=== PATIENT | female | born 2000 | race Caucasian/White ===

== ENCOUNTER 2022-04-26 12:33 | Emergency (ER) | payer OTHER, SELFPAY ==
[2022-04-26 12:49] VITALS: BP 107/87; PULSE 80; RESP 18; TEMP 36.6; O2SAT 100; BMI 50.3
--- NOTE | 2022-04-26 13:02 | CRLHL7_ITS ---
For Patients: As a result of the Century Cures Act, medical imaging exams and procedure reports are released immediately into your electronic medical record. You may view this report before your referring provider. If you have questions, please contact your health care provider. INDICATION: Headache TECHNIQUE: CT head without contrast. COMPARISON: None FINDINGS: CSF spaces: Within normal limits for age. Brain parenchyma: The winters-white differentiation is normal. No sign of mass, hemorrhage, or midline shift. Skull base and calvarium: Mucosal thickening maxillary sinuses left greater than right. Mucosal thickening the ethmoid and frontal air cells. The visualized orbits are grossly unremarkable. No skull fractures. IMPRESSION: No acute intracranial abnormalities. 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 Dictated by Octaviano Aly MD @ 04/26/2022 1:29:55 PM Please note that all CT scans at this facility use dose modulation, iterative reconstruction, and/or weight-based dosing when appropriate to reduce radiation dose to as low as reasonably achievable. Dictated by: Octaviano Aly MD @ 04/26/2022 13:30:01 (Electronically Signed)
--- NOTE | 2022-04-26 13:12 | ED_ITS ---
HPI - Headache General Chief Complaint: Headache/Migraine Stated Complaint: Migraine, trouble speaking Time Seen by Provider: 04/26/22 12:41 History of Present Illness HPI Narrative: Pt is a 22 year old woman who has a history of hemiplegic migraines who presents with a 2 hour history of severe headache. Pt has a difficult time processing information due to the intensity of the headache. The headache is severe and diffuse. No signs of paralysis. Pt has had no nausea or vomiting. Pt isnt sure that she is seeing correctly but has no focal visual defects. Pt was in good health when the headache began abruptly 2 hours ago. Pt typically has her migraine headaches every 2 months but feels like they are escalating. Pt generally doesn not take medication for her headaches as they resolve on their own in 1-2 hours and did not take any medications today. Pt brought in from [facility] by campus safety. Related Data Home Medications Medication Instructions Recorded Confirmed No Known Home Medications 04/26/22 04/26/22 Allergies Allergy/AdvReac Type Severity Reaction Status Date / Time No Known Drug Allergies Allergy Verified 04/26/22 12:55 Review of Systems Status of ROS: Reports: 10 or more systems reviewed and unremarkable except as noted in History and below [facility] Medical History (Updated 04/26/22 @ 14:16 by Delbert Franks MD) Hemiplegic migraine Social History Smoking Status: Never smoker How often do you have a drink containing alcohol: never AUDIT-C Alcohol total score: 0 Non-prescribed substance use: denies use Exam Narrative: Exam Narrative: EXAM GENERAL: Patient appears comfortable and well. EYES: No scleral icterus. ENT: Tympanic membranes and oropharynx normal. THYROID: no thyroid nodules or thyromegaly. LYMPH: No supraclavicular or cervical lymphadenopathy. SKIN: Visible skin seen during exam normal or with benign process only. EXT: No dependent lower extremity pedal edema. HEART: Regular rate and rhythm with no murmurs, rubs, or gallops. LUNGS: Clear to auscultation bilaterally with no crackles or wheezes. ABD: Soft, non tender, non distended. PSYCH: Good eye contact, speech is not pressured. Neuro exam cranial nerves 2-12 grossly intact no focal neurologic defects. Const: Vital Signs, click to edit/add: Vital Signs - 24 hr 04/26/22 12:49 04/26/22 13:49 Temperature 98 F 97.6 F Pulse Rate [Pulse Oximeter] 80 75 Respiratory Rate 18 16 Blood Pressure [Le ft Upper Arm] 107/87 109/79 Pulse Oximetry 100 100 Oxygen Delivery Me thod Room Air Room Air Course Course Hospital Course: CT of the head without contrast ordered as is 1 liter of normal saline, 25 mg of IV benadryl, 4 mg of zofran and 30 mg of Toradol IV. Reevaluation(s) Reevaluation #1: Head CT negative upon my review. Time: 14:06 Time: 14:13 Reevaluation #3: Pt now feeling fine. Vital Signs Vital signs: Initial Vital Signs Temperature 98 F 04/26/22 12:49 Temperature Source Temporal Artery Scan 04/26/22 12:49 Pulse Rate 80 04/26/22 12:49 Respiratory Rate 18 04/26/22 12:49 Blood Pressure 107/87 04/26/22 12:49 Blood Pressure Mean 93 04/26/22 12:49 Blood Pressure Position Supine 04/26/22 12:49 Pulse Oximetry 100 04/26/22 12:49 Oxygen Delivery Method 04/26/22 12:49 Vital Signs Temperature 98 F 04/26/22 12:49 Pulse Rate 80 04/26/22 12:49 Respiratory Rate 18 04/26/22 12:49 Blood Pressure 107/87 04/26/22 12:49 Pulse Oximetry 100 04/26/22 12:49 Oxygen Delivery Method 04/26/22 12:49 Temperature 97.6 F 04/26/22 13:49 Pulse Rate 75 04/26/22 13:49 Respiratory Rate 16 04/26/22 13:49 Blood Pressure 109/79 04/26/22 13:49 Pulse Oximetry 100 04/26/22 13:49 Oxygen Delivery Method 04/26/22 13:49 MDM - Headache MDM Narrative Medical decision making narrative: Pt is a 22 year old woman who presents with a severe migraine. Pt had a CT scan which was normal upon my review. Pt has a normal exam and vitals. Pt treated with normal saline, toradol, zofran and benadryl with resolution of her symptoms. Pt would like to go home. Agrees to follow up with PCP. Differential Diagnosis Differential diagnosis: Likely migraine, tension headache, subarachnoid hemorrhage, headache, meningitis and sinusitis Discharge Plan Discharge Clinical Impression: Migraine Condition: Stable Instructions: Migraine Headache (ED) Additional Instructions: Follow up with PCP Activity Level: No Restrictions Discharge Diet: Regular Prescriptions: No Action No Known Home Medications Follow Up/Referrals: Provider,Not a Local [Primary Care Provider] - Stand Alone Forms: [employer] Info Instructions
[2022-04-26] MEDS: 0.9 % SODIUM CHLORIDE 1000 ml 1,000 ML IV (13:40)
[2022-04-26] MEDS: ONDANSETRON 2 MG/ML inj 4 MG IVP (13:41)
[2022-04-26] MEDS: KETOROLAC 30 MG/ML inj IVP (13:41)
[2022-04-26] MEDS: diphenhydrAMINE 50 MG/ML inj 25 MG IVP (13:41)
[2022-04-26 13:49] VITALS: BP 109/79; PULSE 75; RESP 16; TEMP 36.4; O2SAT 100
== END 2022-04-26 14:44 | disposition home or self-care (01) ==
PROVIDERS: Emergency Provider Internal Medicine
DX: G43.909 Migraine, unspecified, not intractable, without status migrainosus (principal)
CPT/HCPCS: 70450; 96374; 96375; 99283; 99284; J1200; J1885; J2405; J7030

== ENCOUNTER 2023-01-12 20:48 | Emergency (ER) | payer OTHER, SELFPAY ==
[2023-01-12 21:01] VITALS: BP 120/76; PULSE 71; RESP 18; TEMP 36.6; O2SAT 96; BMI 22.8
--- NOTE | 2023-01-12 21:41 | ED_ITS ---
HPI - Wound/Laceration General Time Seen by Provider: 21:41 Date Seen: 01/12/23 Chief Complaint: Laceration/Wound Stated Complaint: L thumb lac carving pumpk Time Seen by Provider: 01/12/23 21:45 Source: patient, RN notes reviewed and old records reviewed Mode of arrival: ambulatory Limitations: no limitations History of Present Illness HPI narrative: Teagan is a very pleasant 22-year-old female from [place] currently going to school in [place] who is brought to the emergency room for evaluation regarding a laceration. Patient had been using a clean knife earlier this evening to carb a pumpkin and it slipped. She is right-hand dominant. The laceration occurred over the MCP joint of the left thumb. Dorsal surface. Since that time she has been using gauze to stop the bleeding. She is able to move her thumb without difficulty. She has sensation in her thumb. She does not feel like there is any compromise of her strength. She is fairly certain th at her tetanus is up-to-date. She denies any other medical problems. Related Data Home Medications Medication Instructions Recorded Confirmed isotretinoin 30 mg capsule 30 mg PO BID 01/12/23 01/12/23 Allergies Allergy/AdvReac Type Severity Reaction Status Date / Time No Known Drug Allergies Allergy Verified 04/26/22 12:55 Review of Systems Status of ROS: Reports: 6 or more systems reviewed and unremarkable except as noted in History and below Const: Denies: fever Musculo: Reports: extremity pain; Denies: extremity swelling Integ/Breast: Reports: skin tenderness; Denies: rash PFSH [facility] Medical History Hemiplegic migraine ?G43.409 - Hemiplegic migraine, not intractable, without status migrainosus (ICD-10) Social History Smoking Status: Never smoker How often do you have a drink containing alcohol: never AUDIT-C Alcohol total score: 0 Non-prescribed substance use: denies use Exam Narrative: Exam Narrative: Teagan is alert and oriented. She is not in any acute distress but looks like she may have been crying. Examination of her left hand shows a C shaped laceration directly over the MCP of the thumb. This compromises epidermis dermis and this helps kidneys tissue. I am able to see underlying structures but there appears to be no compromise. She has full extension of the distal aspect of the thumb with a equal strength compared to the right. I do not note compromise in extensor tendon. Able to isolate extension at the IP joint as well. No foreign bodies are noted. Const: Vital Signs, click to edit/add: Vital Signs - 24 hr 01/12/23 21:01 Temperature 97.8 F Pulse Rate [Pulse Oximeter] 71 Respiratory Rate 18 Blood Pressure [Ri ght Upper Arm] 120/76 Pulse Oximetry 96 Oxygen Delivery Me thod Room Air Documenting provider has reviewed patient's vital signs: yes Course Course ED Course: Will place let for anesthesia. Unfortunately I do not feel that gluing of the wound would hold given its location. Would recommend suturing and patient is accepting of that. Reevaluation(s) Reevaluation #1: Suture note: Let was applied for 30 minutes with good blanching of the area around the wound. Wound was explored and there were no foreign bodies noted. Wound was irrigated by myself. Again, extension both of the some and isolated distal phalanx with full strength and motor. Also distally sensation and motor entirely intact. Total wound length was approximately 2 cm but this was a C like laceration. Four sutures of 5-0 Ethilon placed in interrupted fashion. I did apply a very small amount of glue to the wound edges. Vital Signs Vital signs: Initial Vital Signs Temperature 97.8 F 01/12/23 21:01 Temperature Source Temporal Artery Scan 01/12/23 21:01 Pulse Rate 71 01/12/23 21:01 Respiratory Rate 18 01/12/23 21:01 Blood Pressure 120/76 01/12/23 21:01 Blood Pressure Mean 90 01/12/23 21:01 Blood Pressure Position Sitting 01/12/23 21:01 Pulse Oximetry 96 01/12/23 21:01 Oxygen Delivery Method Room Air 01/12/23 21:01 Vital Signs Temperature 97.8 F 01/12/23 21:01 Pulse Rate 71 01/12/23 21:01 Respiratory Rate 18 01/12/23 21:01 Blood Pressure 120/76 01/12/23 21:01 Pulse Oximetry 96 01/12/23 21:01 Oxygen Delivery Method Room Air 01/12/23 21:01 Temperature 97.8 F 01/12/23 21:01 Pulse Rate 71 01/12/23 21:01 Respiratory Rate 18 01/12/23 21:01 Blood Pressure 120/76 01/12/23 21:01 Pulse Oximetry 96 01/12/23 21:01 Oxygen Delivery Method Room Air 01/12/23 21:01 MDM - Wound/Laceration MDM Narrative Medical decision making narrative: 1. Hand laceration-suture should be removed in 10 days time. Monitor for signs and symptoms of infection. Instructions for no soaking of the wound. Patient should return for worsening symptoms indicating infection and these were discussed with her. Patient notes that her in vaccinations are up-to-date. 2. Disposition home-back to [facility]. Return as needed. Discharge Plan Discharge Clinical Impression: Laceration Patient Disposition: Home, Self-Care Condition: Improved Additional Instructions: Keep covered with a bandage tonight. You may remove it tomorrow. If you are in class or if there is possibility of wound contamination please cover with a Band-Aid. Otherwise you can leave open to air. You can wash your hands with soap and water and pat dry. However, recommend against soaking her hand such as when your doing dishes taking a bath or swimming. Suture removal in 10 days time. For the 1st 48 hours limit movement of your thumb. Return to the emergency room for increasing redness, drainage, fever or chills or other signs of infection. Prescriptions: No Action isotretinoin 30 mg capsule 30 mg PO BID Follow Up/Referrals: Provider,Not a Local [Primary Care Provider] - Stand Alone Forms: [employer] Info Instructions
[2023-01-12] MEDS: LIDOCAINE/EPINEP/TETRACAINE 3 ML GEL..ML. TOPICAL (22:00)
--- OUTSIDE RECORDS SUMMARY | 2023-01-12 22:15 | XMS_ITS | Patient Health Record ---
Author Name Unknown Organization Administrative Offic e Address [address] [place] [address] Support Name Relationship Address Phone AlyssiaMihaela Emergency Contact [address] [place], [place] [phone] Kenney Chairez Guarantor Unknown Unavailabl e REASON FOR REFERRAL No Information IMMUNIZATIONS Vaccine Route Administration Date Status Comme nts Bexsero (Men B) Unknown 08/01/2020 Pending Bexsero (Men B) IM Intramuscular 08/19/2020 Administered Bexsero (Men B) IM Intramuscular 10/27/2020 Administered Menveo Unknown 08/01/2020 Pending SOCIAL HISTORY Sex Assigned At : Social History Observation Description Sex Assigned At Unknown PLAN OF TREATMENT No Information Insurance Providers Payer Name Payer Address Payer Phone Subscriber Number Group Number Insured Name Patient Relationship to Insured Coverage Start Date Coverage End Date [employer] [address] [place] [address] [id number] KAIA CHAIREZ Self - patient is the insured
== END 2023-01-12 23:01 | disposition home or self-care (01) ==
PROVIDERS: Emergency Provider Family Medicine
DX: S61.012A Laceration without foreign body of left thumb without damage to nail, initial encounter (principal); W26.0XXA Contact with knife, initial encounter
CPT/HCPCS: 12001; 99283; 99284

== ENCOUNTER 2023-07-08 19:17 | Emergency (ER) | payer OTHER, SELFPAY ==
[2023-07-08 19:31] VITALS: BP 115/65; PULSE 90; RESP 16; TEMP 36.4; O2SAT 99; BMI 22.4
--- NOTE | 2023-07-08 20:03 | ED_ITS ---
HPI - Head Injury General Chief complaint: Head Injury/Pain Stated complaint: Hit in temporal area with soccer ball-vomited Time Seen by Provider: 07/08/23 19:22 History of Present Illness HPI Narrative: This 23-year-old female comes in for evaluation of a head injury that occurred prior to arrival. She was playing soccer non competitively and was hit in the head by the soccer ball. She did not have loss of consciousness. She did fall over because of this injury but did not injure anything else. Soon after this she had 1 emesis that was not projectile or forceful. She comes in now stating that she feels better but has a mild headache. She does report history of migraine headaches but states that she is not having those type of symptoms. She does not have any neurologic deficit or altered level consciousness. She wanted to go to urgent care but was not opened was instructed to come here for evaluation. Related Data Previous Rx's Medication Instructions Recorded ketorolac 10 mg tablet 10 mg PO Q8H 5 days #15 tabs 07/08/23 ondansetron HCl 4 mg tablet 4 mg PO Q6H #15 tabs 07/08/23 Allergies Allergy/AdvReac Type Severity Reaction Status Date / Time No Known Drug Allergies Allergy Verified 04/26/22 12:55 Review of Systems Status of ROS: Reports: 10 or more systems reviewed and unremarkable except as noted in History and below Narrative: Constitutional: No fevers, no weight gain or loss. Eyes: No discharge. No vision changes. HENT: No congestion, no sore throat, no ear pain. Cardiovascular: No chest pain, no palpitations. Respiratory: No shortness of breath, no wheezes, no cough. Gastrointestinal: No abdominal pain, no vomiting, no diarrhea. Genitourinary: No dysuria, no hematuria. Musculoskeletal: Normal range of motion. Skin: No rashes, no pruritis. Neurological: No dizziness, weakness, sensory change, speech change. Endo/Heme/Allergies: No bruising or bleeding. No polydipsia. Pysch: no suicidality, no anxiety, no insomnia. All other systems reviewed and are negative. [facility] Medical History Hemiplegic migraine ?G43.409 - Hemiplegic migraine, not intractable, without status migrainosus (ICD-10) Social History Smoking Status: Never smoker How often do you have a drink containing alcohol: never AUDIT-C Alcohol total score: 0 Non-prescribed substance use: denies use Exam Narrative: Exam Narrative: Constitutional: Well-developed, well-nourished, no acute distress. HEENT: Normocephalic, atraumatic. No sign of injury. Neck: Normal range of motion. Nontender. Supple. Heart: Regular. No murmurs. Normal rate. Intact distal pulses. Lungs: Clear to auscultation. No chest discomfort. No wheezes, rhonchi, or rales. Abdomen: Normal bowel sounds. Nontender. No rebound tenderness. Genitalia: Deferred. Back: No midline tenderness. Normal range of motion. Extremities: Normal range of motion. No injury. Skin: Intact. No rash. Warm. No erythema or pallor. Neurologic: No altered sensation. No weakness. Alert and oriented. No facial asymmetry. Tongue is midline. Psychiatric: No suicidality. No anxiety or depression. No insomnia. Nursing notes and vitals signs are reviewed. Const: Vital Signs, click to edit/add: Vital Signs - 24 hr 07/08/23 19:31 Temperature 97.6 F Pulse Rate [Pulse Oximeter] 90 Respiratory Rate 16 Blood Pressure [Ri ght Upper Arm] 115/65 Pulse Oximetry 99 Oxygen Delivery Me thod Room Air Course Vital Signs Vital signs: Initial Vital Signs Temperature 97.6 F 07/08/23 19:31 Temperature Source Temporal Artery Scan 07/08/23 19:31 Pulse Rate 90 07/08/23 19:31 Respiratory Rate 16 07/08/23 19:31 Blood Pressure 115/65 07/08/23 19:31 Blood Pressure Mean 81 07/08/23 19:31 Blood Pressure Position Sitting 07/08/23 19:31 Pulse Oximetry 99 07/08/23 19:31 Oxygen Delivery Method Room Air 07/08/23 19:31 Vital Signs Temperature 97.6 F 07/08/23 19:31 Pulse Rate 90 07/08/23 19:31 Respiratory Rate 16 07/08/23 19:31 Blood Pressure 115/65 07/08/23 19:31 Pulse Oximetry 99 07/08/23 19:31 Oxygen Delivery Method Room Air 07/08/23 19:31 Temperature 97.6 F 07/08/23 19:31 Pulse Rate 90 07/08/23 19:31 Respiratory Rate 16 07/08/23 19:31 Blood Pressure 115/65 07/08/23 19:31 Pulse Oximetry 99 07/08/23 19:31 Oxygen Delivery Method Room Air 07/08/23 19:31 MDM - Head Injury MDM Narrative Medical decision making narrative: This patient is a 23-year-old female who was hit in the head by a soccer ball and had a subsequent emesis. She states that she might have had a concussion in the past. I did review nexus rules for deciding whether to do a CT scan. She is not tripping any of those triggers and CT scan is not indicated. The patient is really having minimal symptoms at this time and states that it was the vomiting that triggered other people around her do recommend that she get checked out. Her vomiting was only 1 episode and it was not forceful or projectile. She does have history of occasional migraine headaches but does not report such at this time. I did provide prescription for Toradol and Zofran to be used as needed now and in the future with regard to her recurrent migraines that happen occasionally. Discharge Plan Discharge Clinical Impression: Closed head injury Patient Disposition: Home, Self-Care Condition: Stable Prescriptions: New ondansetron HCl 4 mg tablet 4 mg PO Q6H Qty: 15 0RF ketorolac 10 mg tablet 10 mg PO Q8H 5 Days Qty: 15 0RF Follow Up/Referrals: Provider,Not a Local [Primary Care Provider] - Stand Alone Forms: [employer] Info Instructions
[2023-07-08 20:47] VITALS: BP 120/66; PULSE 85; RESP 18; TEMP 36.7; O2SAT 98
== END 2023-07-08 20:51 | disposition home or self-care (01) ==
LOC: ED 20:27
PROVIDERS: Emergency Provider Emergency Medicine Emergency Medical Services
DX: S09.90XA Unspecified injury of head, initial encounter (principal); W21.02XA Struck by soccer ball, initial encounter
CPT/HCPCS: 99283; 99284

== ENCOUNTER 2024-05-19 04:52 | Emergency (ER) | payer OTHER, SELFPAY ==
--- OUTSIDE RECORDS SUMMARY | 2024-05-19 04:54 | XMS_ITS | Clinical Summary ---
Author Organization [facility] Address [address] [place] [address] Care Team Providers Care Tax Appraiser Name Role Phone Mary Sanders MD Primary Care Provider [phone] Allergies No known active allergies Medications traZODone (DESYREL) 100 MG tablet 02/06/2024 Active desvenlafaxine (PRISTIQ) 50 MG 24 hr tablet 02/10/2024 Active aspirin-acetamin ophen-caffeine (EXCEDRIN MIGRAINE) 250-250-65 mg per tablet Take 1 tablet by mouth every 6 (six) hours as needed for headaches. 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 Overview (09/27/2020): Added automatically from request for surgery [id number] Encounters Date Type Department Care Team Description 03/18/2024 3:40 PM TIRE MOLD ENGRAVER Office Visit [facility] [address] [place] [id number] Maggy Zavaleta PA Encounter for well woman exam with routine gynecological exam (Primary Dx); PMDD (premenstrual dysphoric disorder) from Last 3 Months Family History Medical History Relation Name Comments No Known Problems Brother 1 No Known Problems Brother 2 Anxiety disorder Father Arrhythmia Father Heart disease Father Panic disorder Father Atrial fibrillation Maternal Grandfather Heart disease Maternal Grandmother Thyroid cancer Maternal Grandmother Skin cancer Mother Thyroid disease Mother Breast cancer Paternal Grandmother Theresa Patton ccurred after age of 50 Multiple myeloma Paternal Grandmother Theresa pat Relation Name Status Comments Brother 1 Alive Brother 2 Alive Father Alive Maternal Grandfather Alive Maternal Grandmother Alive Mother Alive Paternal Grandfather Alive Paternal Grandmother Theresa Lewis Social History Tobacco Use Types Packs/Day Years Used Date Smoking Tobacco: Never Smokeless Tobacco: Never Tobacco Cessation:Counseling Given: Not Answered Alcohol Use Standard Drinks/Week Comments Yes 2 (1 standard drink = 0.6 oz pur e alcohol) social Comments No Sex and Gender Information Value Date Recorded Sex Assigned at Female 08/18/2020 7:53 AM CDT Legal Sex Female 7:46 PM TIRE MOLD ENGRAVER Gender Identity Female 08/18/2020 7:53 AM CDT Sexual Orientation Don't know 08/18/2020 7: 53 AM CDT Occupation Industry Job Start Date Job End Date Student Not on file Not on file Not on file Last Filed Vital Signs Vital Sign Reading Time Taken Comments Blood Pressure 112/74 03/18/2024 3:41 PM TIRE MOLD ENGRAVER Pulse 101 03/18/2024 3:41 PM TIRE MOLD ENGRAVER Temperature 36.1 C (97 F) 12/06/2020 10:03 AM CDT Respiratory Rate 18 10/24/2020 11:00 AM CDT Oxygen Saturation 99% 10/24/2020 11:00 AM CDT Inhaled Oxygen Concentration - - Weight 63 kg (138 lb 12.8 oz) 03/18/2024 3:41 PM TIRE MOLD ENGRAVER Height 172.7 cm (5' 8) 10/27/2021 10:11 AM CDT Body Mass Index 21.1 10/27/2021 10:11 AM CDT Plan of Treatment Health Maintenance Due Date Last Done Comments HEPATITIS C SCREENING 02/16/2020 COVID-19 VACCINE (3 - 2023-2 5 season) 2023 07/21/2020, 06/28/2020 INFLUENZA VACCINE (#1) 2023 CHLAMYDIA SCREENING 03/18/2025 03/18/2024 CERVICAL CANCER SCREENING 03/18/2027 03/18/2024 Pneumococcal Vaccine: Pediatrics (0 to 5 Years) and At-Risk Patients (6 to 64 Years) Aged Out No longer eligible b ased on patient's age to complete this topic Procedures Procedure Name Priority Date/Time Associated Diagnosis Comments PAP W/AGE BASED SCREENING PROTOCOLS Routine 03/18/2024 4:35 PM TIRE MOLD ENGRAVER Encounter for well woman exam with routine gynecological exam from Last 3 Months Results * PAP W/AGE BASED SCREENING PROTOCOLS (03/18/2024 4:35 PM TIRE MOLD ENGRAVER) Comment [facility] [facility] Comment: This order for age-based cervical cancer and STI screening follows ACOG guidelines(PB 168, 140, CNV392). See individual assays for performing site location. Clinical information [facility] [facility] Comment:None given Date of last menstrual period [facility] [facility] Comment:NONE GIVEN Prev. pap: [facility] [facility] Comment:NONE GIVEN Prev. bx: [facility] [facility] Comment:NONE GIVEN Source [facility] [facility] Comment:Cervix, Endocervix Statement of adequacy [facility] [facility] Comment: Satisfactory for evaluation. Endocervical/transformation zone component absent. Age and/or menstrual status not provided Interpretation/resu lt: [facility] [facility] Comment: Cytology Results: Negative for intraepithelial lesion or malignancy. Comment [facility] [facility] Comment: This Pap test has been evaluated with computer assisted technology. Forming Department End Finder [facility] [facility] Comment: DGP, CT(ASCP) CT screening location: [address],[phone] CLIA: [id number] Slide Preparation performed at: [facility] [address] [place] [phone] CLIA: [id number] Comment [facility] [facility] Comment: EXPLANATORY NOTE: The Pap is a screening test for cervical cancer. It is not a diagnostic test and is subject to false negative and false positive results. It is most reliable when a satisfactory sample, regularly obtained, is submitted with relevant clinical findings and history, and when the Pap result is evaluated along with historic and current clinical information. Chlamydia trachomatis, [place] NOT DETECTED NOT DETECTED [facility] [facility] Neisseria gonorrhoeae, [place] NOT DETECTED NOT DETECTED [facility] [facility] (Always message) [facility] [facility] Comment: The analytical performance characteristics of this assay, when used to test SurePath(TM) specimens have been determined by [facility]. The modifications have not been cleared or approved by the FDA. This assay has been validated pursuant to the CLIA regulations and is used for clinical purposes. For additional information, please refer to https://education.[employer]faq/EQJ761 (This link is being provided for information/ educational purposes only.) Swab 03/18/2024 4:35 PM TIRE MOLD ENGRAVER 03/19/2024 9:13 AM TIRE MOLD ENGRAVER Narrative Resulting Agency Comment Performing Organization Information: Site ID: [id number] Name: [facility] Address: [address] [place] [phone] Director: Christine Goodwin MD, PhD us Maggy [facility]CYTOLOGY ORDER OLINDA Final Result [facility] [address] [place] [address]. [place] [address] from Last 3 Months Insurance [employer] PPO OPEN CHOICE Care Teams Tax Appraiser Relationship Specialty Start Date End Date Mary Sanders MD [address] [place] [address] PCP - General Pediatrics 08/19/20
--- OUTSIDE RECORDS SUMMARY | 2024-05-19 04:54 | XMS_ITS | Encounter Summary ---
Author Organization [facility] Address [address] [place] [address] Care Team Providers Care Official Court Reporter Name Role Phone Mary Sanders MD Primary Care Provider [phone] Encounter Details Date Type Department Care Team (Late st Contact Info) Description 09/29/2020 Telephone [facility] [address] [phone] Desmond Worthy MD [address] [facility] [address] [place], [place] [id number] Social History Tobacco Use Types Packs/Day Years Used Date Smoking Tobacco: Never Assessed Alcohol Use Standard Drinks/Week Comments Never 0 (1 standard drink = 0.6 oz pur e alcohol) Comments No Sex and Gender Information Value Date Recorded Sex Assigned at Female 08/18/2020 7:53 AM CDT Legal Sex Female 7:46 PM BACK JOINER Gender Identity Female 08/18/2020 7:53 AM CDT Sexual Orientation Don't know 08/18/2020 7: 53 AM CDT COVID-19 Exposure Response Date Recorded In the last month, have you been in contact with someone who was confirmed or suspected to have Coronavirus / COVID-19? No / Unsure 09/09/2020 11:10 AM CDT documented as of this encounter Plan of Treatment Not on file documented as of this encounter Visit Diagnoses Not on filedocumented in this encounter Care Teams Official Court Reporter Relationship Specialty Start Date End Date Mary Sanders MD [address] [place] [id number] PCP - General Pediatrics 08/19/20 documented as of this encounter
[2024-05-19 04:57] VITALS: BP 137/81; PULSE 79; RESP 20; TEMP 37.1; O2SAT 97; BMI 21.3
[2024-05-19 05:13] LABS: Appearance Urine Clear (Clear); Bilirubin Urine Negative (Negative); Blood Urine Negative (Negative); Color Urine Yellow (Yellow); Glucose Urine Negative (Negative); Ketones Urine Negative (Negative); Leukocyte Esterase Urine Negative (Negative); Nitrite Urine Negative (Negative); Protein Urine Negative (Negative); Urobilinogen Urine 0.2 (0.2-1.0)
[2024-05-19 05:18] LABS: RBC Urine 0-2 (0-2); Squamous Epithelial Cell Urine Few (None-Few); WBC Urine 0-2 (0-5)
[2024-05-19 05:19] LABS: Bacteria Urine Few; Ur HCG Qualitative* Negative (Negative)
--- NOTE | 2024-05-19 05:24 | CRLHL7_ITS ---
For Patients: As a result of the Century Cures Act, medical imaging exams and procedure reports are released immediately into your electronic medical record. You may view this report before your referring provider. If you have questions, please contact your health care provider. INDICATION: Right lower quadrant pain. Negative test. COMPARISON: None. TECHNIQUE: CT of the abdomen and pelvis with intravenous contrast. Multiplanar axial, coronal, and sagittal reformats were reconstructed. Contrast: 69 mL Isovue 370. FINDINGS: Lung bases: Normal. Liver: Normal. No mass. Gallbladder and bile ducts: Normal gallbladder. No bile duct dilation. Pancreas: Normal. Spleen: Normal. Adrenal glands: Normal. Kidneys: Normal parenchyma. There is a 2 centimeters cyst in the left posterior mid kidney. No calculi. No urinary tract dilation. Urinary bladder: Normal. Pelvis: There are 2 right ovarian cystic lesions. The largest measures 3.4 x 3.0 x 3.0. The smaller measures up to 2 centimeters in greatest maximum dimension. Mildly heterogeneous uterus with several myometrial lesions/masses. The largest is in the right fundus and measures 1.7 cm. There is a moderate amount of hemoperitoneum. Vessels: Normal. Bowel: No dilated or inflamed bowel. The appendix is not definitely seen. There is fecalization of the small bowel contents diffusely. Large stool burden. Lymph nodes: No adenopathy. Peritoneum: Hemoperitoneum in the pelvis and extending up the left inferior pericolic gutter. No free air. No loculation. Abdominal wall: No hernia. Bones: No fractures. No focal worrisome bone lesions. IMPRESSION: 1. Large hemoperitoneum. Suspect ovarian origin/ruptured cyst. Discussed with Dr. Leonard at 6:10 a.m. on 05/19/2024. 2. There also some small uterine myometrial lesions that are probably fibroids. 3. Constipation with a large stool burden and significant fecalization of the small bowel contents. Please note that all CT scans at this facility use dose modulation, iterative reconstruction, and/or weight-based dosing when appropriate to reduce radiation dose to as low as reasonably achievable. Dictated by Ijeoma Flowers MD @ 05/19/2024 6:11:40 AM (Electronically Signed)
--- NOTE | 2024-05-19 05:27 | ED.GENADULT ---
HPI - General Adult General Chief complaint: Abdominal Pain Stated complaint: Abdominal Pain Time Seen by Provider: 05/19/24 05:10 Source: patient Mode of arrival: ambulatory Limitations: no limitations History of Present Illness HPI narrative: 24-year-old female with no prior history of abdominal surgeries presents to the emergency department for evaluation of pain in the right lower quadrant for the past 10 hours, worsening in nature. Did not try taking any medication today to help with symptoms. Did take 2 Excedrin 20 hours ago because she thought a migraine might be coming on. No fever, no injury or trauma. No dysuria or gynecological changes. Denies any prior history of intercourse. Menses are irregular, last cycle was in March. No hematuria. Last bowel movement was last night, benign. No bloody stools or diarrhea. No nausea or vomiting. Tearful in triage she. Pain is constant and radiates to the right shoulder. Worsening in nature, has not tried anything to help with her symptoms today. Denies prior history of similar symptoms. No gynecological changes. Past medical history notable for depression. Home meds are Pristiq and trazodone. Nonsmoker, not in a relationship. No allergies. ROS notable for the abdominal symptoms only, otherwise denies times 12 systems. Related Data Home Medications ?Medication ?Instructions ?Recorded ?Confirmed desvenlafaxine succinate 50 mg mg PO DAILY 05/19/24 tablet,extended release 24 hr trazodone 50 mg tablet mg 05/19/24 Previous Rx's ?Medication ?Instructions ?Recorded ketorolac 10 mg tablet 10 mg PO Q8H 5 days #15 tabs 07/08/23 ondansetron HCl 4 mg tablet 4 mg PO Q6H #15 tabs 07/08/23 Allergies Allergy/AdvReac Type Severity Reaction Status Date / Time No Known Drug Allergies Allergy Verified 05/19/24 05:54 [facility] Medical History Hemiplegic migraine ?G43.409 - Hemiplegic migraine, not intractable, without status migrainosus (ICD-10) Social History Smoking Status: Never smoker Do you use any of these nicotine containing products: None Second hand tobacco smoke exposure: No How often do you have a drink containing alcohol: never AUDIT-C Alcohol total score: 0 Non-prescribed substance use: denies use service: No Exam Const: Vital Signs, click to edit/add: Vital Signs - 24 hr 05/19/24 04:57 05/19/24 06:44 Temperature 98.8 F Pulse Rate [Pulse Oximeter] 79 90 Respiratory Rate 20 18 Blood Pressure [Ri ght Upper Arm] 137/81 111/68 Pulse Oximetry 97 Oxygen Delivery Me thod Room Air Documenting provider has reviewed patient's vital signs: yes Common normals: alert General appearance: well kempt Other: Tearful, anxious. No intoxication or impairment. HENMT: Common normals: normocephalic, moist oral mucous membranes and oropharynx normal Head and scalp: normocephalic Eye: Common normals: conjunctivae normal General eye: normal appearance of both eyes Conjunctiva: conjunctiva(e) normal Neck & C-Spine: Common normals: full ROM and no lymphadenopathy General: normal visual inspection Resp: Common normals: normal respiratory effort, no use of accessory muscles and clear to auscultation bilaterally Effort & inspection: able to speak in complete sentences Auscultation: clear to auscultation bilaterally Cardio: Common normals: regular rate, regular rhythm, S1 normal heart sound and S2 normal heart sound Rate: regular rate Rhythm: regular rhythm Heart sounds: S1 normal and S2 normal GI: Common normals: Normal to inspection, nondistended, normoactive bowel sounds present, soft to palpation, no hepatosplenomegaly and no masses Palpation: soft and no hepatosplenomegaly Other: Difficult to interpret exam. Does seem to have tenderness in the right lower quadrant but no obvious mass, no guarding. : Common normals: no CVA tenderness Bladder/kidney exam: no CVA tenderness Back & Pelvis: Common normals: no CVA tenderness Extremity: Common normals: normal to inspection, full ROM, normal capillary refill and no pedal edema Neuro: Sensorium/orientation: alert Speech: speech normal Motor exam: no movement abnormalities noted Psych: Appearance: well kempt Attitude: engaged Insight: fair Judgement: fair Skin: Common normals: no rashes or lesions noted General skin exam: no rashes or lesions noted Course Course ED Course: 24-year-old with nontraumatic abdominal pain in mainly the right lower quadrant. Differential diagnosis including ovarian cysts, appendicitis, colitis, constipation, ectopic , musculoskeletal etiology, amongst others. Urinalysis and test were obtained in triage in are both reassuring. Will proceed with CT of the abdomen and pelvis. Place peripheral IV, Toradol for pain, declines nausea medication for now. Typical intra-abdominal labs, await findings. Reevaluation(s) Time of Reevaluation #1: 06:33 Reevaluation #1: Ruptured ovarian cyst noted on CT with no signs of acute extravasation or persistent hemorrhage. Patient's vital signs remained stable, no tachycardia. Pain is much better after the Toradol. Labs are all reassuring. I did attempt to contact Gynecology, but they are tied up on the OB floor and have not returned our pages. I do not think that it is truly impaired of that they weigh in on this patient prior to discharge since she is doing so much better. Counseled patient that unfortunately with the loose blood in the lower pelvis, she is going to have quite a bit of pain especially for the next few days but it can last for a few weeks. Recommended Tylenol 1000 mg every 6 hours for pain. I have given prescriptions for Toradol 10 mg q.i.d. p.r.n. as well as a very limited supply of for oxycodone tablets if needed. She is fairly constipated and I think she will struggle if she needs to bear down to passed stool, increasing her pelvic pain from the ruptured ovarian cyst. Rationale is discussed. She will be given a dose of MiraLax and Colace here in the ED as well as 5 mg of oxycodone as I am worried about her pain worsening significantly once the Toradol wears off. Like many PERORA dunes, she is familiar with MiraLax but is using it incorrectly. I stressed the importance of dissolving it in 4-8 oz of liquid rather than in a very large water bottle slipped slowly through the day as this defeats the osmotic properties, negating the effectiveness of the medication. She verbalizes understanding and agreement. Counseled that complications are fairly rare but could include infection, persistent hemorrhage. Alarm symptoms of this were reviewed as indications to come back to the ED. Counseled patient to make a follow-up appointment with gynecology in 4 weeks. She says that she will be home over spring during that time and can make an appointment with her primary forest engineer. She is given a printout of her CT to take with her. She may benefit from an oral contraceptives to help regulate her menses, rationale is discussed. Because of her history of migraines, she would like to discuss this with her forest engineer which I agree is best. School note given for today, try to return tomorrow. Written instructions provided. Vital Signs Vital signs: Initial Vital Signs Temperature 98.8 F 05/19/24 04:57 Temperature Source Temporal Artery Scan 05/19/24 04:57 Pulse Rate 79 05/19/24 04:57 Pulse Rhythm Regular 05/19/24 04:57 Pulse Strength 3+ Normal 05/19/24 04:57 Respiratory Rate 20 05/19/24 04:57 Blood Pressure 137/81 05/19/24 04:57 Blood Pressure Mean 99 05/19/24 04:57 Blood Pressure Position Sitting 05/19/24 04:57 Pulse Oximetry 97 05/19/24 04:57 Oxygen Delivery Method Room Air 05/19/24 04:57 Vital Signs Temperature 98.8 F 05/19/24 04:57 Pulse Rate 79 05/19/24 04:57 Respiratory Rate 20 05/19/24 04:57 Blood Pressure 137/81 05/19/24 04:57 Pulse Oximetry 97 05/19/24 04:57 Oxygen Delivery Method Room Air 05/19/24 04:57 Temperature 98.8 F 05/19/24 04:57 Pulse Rate 90 05/19/24 06:44 Respiratory Rate 18 05/19/24 06:44 Blood Pressure 111/68 05/19/24 06:44 Pulse Oximetry 97 05/19/24 04:57 Oxygen Delivery Method Room Air 05/19/24 04:57 Medications Administered Medications: Discontinued Medications Generic Name Dose Route Start Last Admin Trade Name Freq PRN Reason Stop Dose Admin Acetaminophen 1,000 mg 05/19/24 06:37 05/19/24 06:43 Acetaminophen 500 Mg Tablet PO 05/19/24 06:38 1,000 mg ONCE ONE Administration Ketorolac Tromethamine 15 mg 05/19/24 05:24 05/19/24 05:34 Ketorolac 15 Mg/Ml Inj IVP 05/19/24 05:25 15 mg ONCE ONE Administration Oxycodone HCl 5 mg 05/19/24 06:37 05/19/24 06:43 Oxycodone 5 Mg Tablet PO 05/19/24 06:38 5 mg ONCE ONE Administration Medical Decision Making Lab Data Lab results reviewed: Yes I reviewed the patient's lab results Lab results narrative: Labs reassuring. Negative test Labs: Lab Results 05/19/24 05/19/24 Range/Units 05:00 05:33 WBC 7.08 (4.50-11.00) K/uL RBC 4.07 (4.00-5.20) m/uL Hgb 10.9 L (12.0-16.0) gm/dL Hct 33.6 (33.0-51.0) % MCV 83 (80-100) fL MCH 27 (26-34) pg MCHC 32 (32-36) gm/dL RDW Coeff of Carmela 14.4 (11.5-15.5) % Plt Count 335 (140-440) K/uL Neut % (Auto) 57.0 (42.0-72.0) % Lymph % (Auto) 29.2 (20-44) % [place] % (Auto) 11.9 H (0.0-11.0) % Eos % (Auto) 1.4 (0.0-7.0) % Baso % (Auto) 0.4 (0.0-3.0) % Neut # (Auto) 4.03 (1.7-7.0) K/uL Lymph # (Auto) 2.07 (0.90-2.90) K/uL [place] # (Auto) 0.80 (0.00-0.90) K/UL Eos # (Auto) 0.10 (0.00-0.50) K/uL Baso # (Auto) 0.03 (0.00-0.30) K/uL Abs Immat Gran (auto) 0.01 (0.00-0.30) K/uL Imm/Tot Granulo (auto) 0.1 % Sodium 137 (135-149) mmol/L Potassium 4.0 (3.6-5.1) mmol/L Chloride 103 (96-114) mmol/L Carbon Dioxide 23 (20-32) mmol/L Anion Gap 11 (7-15) mEq/L BUN 11 (5-24) mg/dL Creatinine 0.6 (0.5-1.5) mg/dL Estimated Creat Clear 147.44 Estimated GFR 130 ml/min Glucose 101 (60-115) mg/dL Lactate 0.7 (0.5-1.9) mmol/L Calcium 9.1 (8.4-10.6) mg/dL Total Bilirubin 0.5 (0.1-1.5) mg/dL AST 22 (12-35) U/L ALT 15 (4-35) U/L Alkaline Phosphatase 62 (40-150) U/L C-Reactive Protein 0.8 (0.5-1.0) mg/dL Total Protein 6.9 (6.0-8.3) g/dL Albumin 4.3 (3.3-5.0) g/dL Lipase 75 (23-300) U/L Urine Color Yellow (Yellow) Urine Appearance Clear (Clear) Urine pH 7.0 (5.0-8.5) Ur Specific [place] 1.020 (1.000-1.030) Urine Protein Negative (Negative) Urine Glucose (UA) Negative (Negative) Urine Ketones Negative (Negative) Urine Blood Negative (Negative) Urine Nitrite Negative (Negative) Urine Bilirubin Negative (Negative) Urine Urobilinogen 0.2 (0.2-1.0) Ur Leukocyte Esterase Negative (Negative) Urine RBC 0-2 (0-2) Urine WBC 0-2 (0-5) Ur Squamous Epith Cells Few (None-Few) Urine Bacteria Few A (None) Urine HCG, Qual Negative (Negative) Imaging Data CT scan - abdomen: Attestation: I have reviewed the pertinent imaging results. My impression: Large hemorrhagic ovarian cyst with no evidence of persistent bleeding or contrast extravasation. Constipation Radiologist's impression: IMPRESSION: 1. Large hemoperitoneum. Suspect ovarian origin/ruptured cyst. Discussed with Dr. Leonard at 6:10 a.m. on 05/19/2024. 2. There also some small uterine myometrial lesions that are probably fibroids. 3. Constipation with a large stool burden and significant fecalization of the small bowel contents. Discharge Plan Discharge Clinical Impression: Rupture of ovarian cyst Patient Disposition: Home w/ Parent or Adult Condition: Improved Instructions: Ovarian Cyst (ED) Additional Instructions: As we discussed, your CT scan and exam are consistent with a ruptured ovarian cyst. It actually was a fairly big rupture and did have some bleeding into the lower pelvis which will be painful for you for the next several days. There does not seem to be evidence of continued, persistent bleeding thankfully. Blood in the abdominal cavity can be very irritating to the surrounding tissue so any type of movement, exercise or increased activity will likely make the pain worse. Infection is rare, but can occur. If you start having high fevers, severe weakness or other signs of complication, you should return to the emergency department. For pain, I recommend Tylenol 1000 mg every 6 hours as your Foundation. Do not be afraid to take the medication this often, it is very safe for someone of your age and organ function. If the pain is still bothersome with this, please at in the prescription Toradol 1 tablet up to every 6 hours. These medications come from different classes and may be used to gather. If the pain is very severe, I have given you a limited supply of for oxycodone tablets. Please make sure you have used Tylenol and the Toradol to the maximum ability 1st before using. The oxycodone may cause sedation and constipation. Since you are already showing signs of constipation, I recommend that we begin treating this more aggressively. Your given a dose of MiraLax and Colace which is a stool softener here in the emergency department. I would like for you to continue using the MiraLax 1-2 times per day until your bowels move nice and loose. Remember that the biggest trich with MiraLax is that it has to be dissolved in a very particular amount of fluid. You cannot dissolve 17 g in a very large water bottle and expect proper results due to the fact that this is an osmotic laxative. He needs to be dissolved in 4-8 oz to work properly, best finished within 10-15 minutes of starting the dose. Continue sipping water throughout the day to help flush the system. As we discussed, you may want to consider going on some form of oral control to reduce her chance of getting ovarian cyst in the future. Because of your migraine history, I recommend that you discuss your options with your forest engineer. There are some options available to you. Please make a follow-up appointment with them in 4-6 weeks. I will give you a paper copy of your ultrasound report. Either take a picture of this or bring it with you to your appointment so that they can review this as well. They may consider doing a follow-up ultrasound to monitor the cysts. Activity Level: Activity as Tolerated Discharge Diet: Regular Prescriptions: No Action trazodone 50 mg tablet desvenlafaxine succinate 50 mg tablet extended release 24 hr PO DAILY ondansetron HCl 4 mg tablet 4 mg PO Q6H Qty: 15 0RF ketorolac 10 mg tablet 10 mg PO Q8H 5 Days Qty: 15 0RF Follow Up/Referrals: Provider,Not a Local [Primary Care Provider] - Stand Alone [facility] Inst[facility]
[2024-05-19] MEDS: KETOROLAC 15 MG/ML inj IVP (05:34)
[2024-05-19 05:42] LABS: Basophils Absolute Auto 0.03 K/uL (0.00-0.30); Basophils Percent Auto 0.4 % (0.0-3.0); Eosinophils Percent Auto 1.4 % (0.0-7.0); Hematocrit 33.6 % (33.0-51.0); Hemoglobin* 10.9 gm/dL (12.0-16.0); Immature Granulocytes Abs Auto 0.01 K/uL (0.00-0.30); Immature Granulocytes Pct Auto 0.1 %; Lymphocytes Absolute Auto 2.07 K/uL (0.90-2.90); Lymphocytes Percent Auto 29.2 % (20-44); Mean Corpuscular HGB Conc 32 gm/dL (32-36); Mean Corpuscular Hemoglobin 27 pg (26-34); Mean Corpuscular Volume 83 fL (80-100); Monocytes Percent Auto 11.9 % (0.0-11.0); Neutrophils Absolute Auto 4.03 K/uL (1.7-7.0); Platelet Count* 335 K/uL (140-440); RDW Coefficient of Variation % 14.4 % (11.5-15.5); Red Blood Count 4.07 m/uL (4.00-5.20); White Blood Count* 7.08 K/uL (4.50-11.00)
[2024-05-19 05:46] LABS: Slide Review Reflex No
--- OUTSIDE RECORDS SUMMARY | 2024-05-19 05:57 | XMS_ITS | Encounter Summary ---
Author Organization [facility] Address [address] [place] [address] Care Team Providers Care Fiber Designer Name Role Phone Mary Sanders MD Primary Care Provider [phone] Encounter Details Date Type Department Care Team (Late st Contact Info) Description 09/29/2020 Telephone [facility] [address] [phone] Desmond Worthy MD [address] [facility] [address] [place], [place] [id number] Social History Tobacco Use Types Packs/Day Years Used Date Smoking Tobacco: Never Assessed Alcohol Use Standard Drinks/Week Comments Never 0 (1 standard drink = 0.6 oz pur e alcohol) Comments No Sex and Gender Information Value Date Recorded Sex Assigned at Female 08/18/2020 7:53 AM CDT Legal Sex Female 7:46 PM PUBLIC RECORDS RESEARCHER Gender Identity Female 08/18/2020 7:53 AM CDT [...] on filedocumented in this encounter Care Teams Fiber Designer Relationship Specialty Start Date End Date Mary Sanders MD [address] [place] [address] PCP - General Pediatrics 08/19/20 documented as of this encounter
--- OUTSIDE RECORDS SUMMARY | 2024-05-19 05:57 | XMS_ITS | Clinical Summary ---
Author Organization [facility] Address [address] [place] [address] Care Team Providers Care Cash Checker Name Role Phone Unavailable Primary Care Provider Unavailabl e Immunizations Name Administration Dates Next Due SARS-COV-2 COVID-19 PFIZER VACCINE 07/21/2020, Social History Tobacco Use Types Packs/Day Years Used Date Smoking Tobacco: Never Assessed Sex and Gender Information Value Date Recorded Sex Assigned at Not on file Gender Identity Not on file Sexual Orientation Not on file Plan of Treatment Health Maintenance Due Date Last Done Comments Depression Screening 2014 VARICELLA VACCINES (1 of 2 - 13+ 2-dose series) 2015 HPV VACCINES (1 - 3-dose series) 2017 CHLAMYDIA SCREENING 2018 HEPATITIS C (HCV) SCREEN 02/16/2020 SDOH Financial Resource Strain 02/16/2020 SDOH Food Insecurity 02/16/2020 SDOH Transportation Needs 02/16/2020 DTaP,Tdap,and Td Vaccines (1 - Tdap) 2021 Cervical Cancer Screening 2023 Pap Smear 2023 INFLUENZA VACCINE (#1) 2023 SARS-CoV-2 (COVID-19) Vaccin e ( season) 2023 07/21/2020, 06/28/2020 MENINGOCOCCAL VACCINE Aged Out No bartolo keyana eligible based on patient's age to complete this topic PNEUMOCOCCAL 0-49 YEARS COMBINED SERIES Aged Out No longer eligible b ased on patient's age to complete this topic
--- OUTSIDE RECORDS SUMMARY | 2024-05-19 05:57 | XMS_ITS | Clinical Summary ---
Author Organization [facility] Address [address] [place] [address] Care Team Providers Care Environmental Science Instructor Name Role Phone Mary Sanders MD Primary Care Provider [phone] Allergies No known active allergies Medications traZODone (DESYREL) 100 MG tablet 02/06/2024 Active desvenlafaxine (PRISTIQ) 50 MG 24 hr tablet 02/10/2024 Active aspirin-acetamin ophen-caffeine (EXCEDRIN MIGRAINE) 250-250-65 mg per tablet Take 1 tablet by mouth every 6 (six) hours as needed for headaches. 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 Overview (09/27/2020): Added automatically from request for surgery [id number] Encounters Date Type Department Care Team Description 03/18/2024 3:40 PM CHOP SAW OPERATOR Office Visit [facility] [address] [place] [phone] Maggy Zavaleta PA Encounter for well [...] AM CDT Legal Sex Female 7:46 PM CHOP SAW OPERATOR Gender Identity Female 08/18/2020 7:53 AM CDT Sexual Orientation Don't know 08/18/2020 7: 53 AM CDT Occupation Industry Job Start Date Job End Date Student Not on file Not on file Not on file Last Filed Vital Signs Vital Sign Reading Time Taken Comments Blood Pressure 112/74 03/18/2024 3:41 PM CHOP SAW OPERATOR Pulse 101 03/18/2024 3:41 PM CHOP SAW OPERATOR Temperature 36.1 C (97 F) 12/06/2020 10:03 AM CDT Respiratory Rate 18 10/24/2020 11:00 AM CDT Oxygen Saturation 99% 10/24/2020 11:00 AM CDT Inhaled Oxygen Concentration - - Weight 63 kg (138 lb 12.8 oz) 03/18/2024 3:41 PM CHOP SAW OPERATOR Height 172.7 cm (5' 8) 10/27/2021 10:11 [...] BASED SCREENING PROTOCOLS Routine 03/18/2024 4:35 PM CHOP SAW OPERATOR Encounter for well woman exam with routine gynecological exam from Last 3 Months Results * PAP W/AGE BASED SCREENING PROTOCOLS (03/18/2024 4:35 PM CHOP SAW OPERATOR) Comment [facility] [facility] Comment: This order for age-based cervical cancer and STI screening follows ACOG guidelines(PB 168, 140, MQD645). See individual assays for performing site location. [...] and/or menstrual status not provided Interpretation/resu lt: [facility] [facility] Comment: Cytology Results: Negative for intraepithelial lesion or malignancy. Comment [facility] [facility] Comment: This Pap test has been evaluated with computer assisted technology. [facility] [facility] Comment: DGP, CT(ASCP) CT screening location: [address],[id number] CLIA: [id number] Slide Preparation performed at: [facility] [address] [place] [phone] CLIA: [id number] Comment [facility] [facility] Comment: EXPLANATORY NOTE: The Pap [...] Chlamydia trachomatis, [place] NOT DETECTED NOT DETECTED [facility] [facility] Neisseria gonorrhoeae, [place] NOT DETECTED NOT DETECTED [facility] [facility] (Always message) [facility] [facility] Comment: The analytical performance characteristics of this assay, when used to test SurePath(TM) specimens have been determined by [facility]. The modifications have not been cleared or approved by the FDA. This assay has been validated pursuant to the CLIA regulations and is used for clinical purposes. For additional information, please refer to [email or web address]/QJH836 (This link is being provided for information/ educational purposes only.) Swab 03/18/2024 4:35 PM CHOP SAW OPERATOR 03/19/2024 9:13 AM CHOP SAW OPERATOR Narrative Resulting Agency Comment Performing Organization Information: Site ID: [id number] Name: [facility] Address: [address] [place] [id number] Director: Christine Goodwin MD, PhD us Maggy [facility]/CYTOLOGY ORDER OLINDA Final Result [facility] [address] [place] [address]. [place] [address] from Last 3 Months Insurance [employer] PPO OPEN CHOICE Care Teams Environmental Science Instructor Relationship Specialty Start Date End Date Mary Sanders MD [address] [place] [address] PCP - General Pediatrics 08/19/20
[2024-05-19 06:02] LABS: Lactate* 0.7 mmol/L (0.5-1.9)
[2024-05-19 06:14] LABS: Albumin* 4.3 g/dL (3.3-5.0); Chloride* 103 mmol/L (96-114)
[2024-05-19 06:15] LABS: Sodium* 137 mmol/L (135-149)
[2024-05-19 06:17] LABS: Alkaline Phosphatase* 62 U/L (40-150); Anion Gap 11 mEq/L (7-15); Aspartate Amino Transferase* 22 U/L (12-35); Bilirubin Total* 0.5 mg/dL (0.1-1.5); Carbon Dioxide* 23 mmol/L (20-32); Creatinine* 0.6 mg/dL (0.5-1.5); Est. Creatinine Clearance* 147.44; Estimated Glomerular Filt Rate 130 ml/min; Lipase* 75 U/L (23-300); Total Protein* 6.9 g/dL (6.0-8.3)
[2024-05-19 06:18] LABS: Alanine Aminotransferase* 15 U/L (4-35); Blood Urea Nitrogen* 11 mg/dL (5-24); Calcium* 9.1 mg/dL (8.4-10.6); Glucose* 101 mg/dL (60-115)
[2024-05-19 06:20] LABS: C Reactive Protein* 0.8 mg/dL (0.5-1.0)
[2024-05-19] MEDS: ACETAMINOPHEN 500 MG TABLET 1000 MG PO (06:43)
[2024-05-19] MEDS: OXYCODONE 5 MG TABLET PO (06:43)
[2024-05-19 06:44] VITALS: BP 111/68; PULSE 90; RESP 18
[2024-05-19] MEDS: polyethylene glycoL 3350 17 GM PACK PO (07:00)
[2024-05-19] MEDS: DOCUSATE SODIUM 100 MG CAPSULE 200 MG PO (07:00)
== END 2024-05-19 07:18 | disposition home or self-care (01) ==
PROVIDERS: Emergency Provider Family Medicine
DX: N83.201 Unspecified ovarian cyst, right side (principal); K66.1 Hemoperitoneum
CPT/HCPCS: 36415; 74177; 80053; 81001; 81025; 83605; 83690; 85025; 86140; 87086; 96374; 99284; 99285; A9270; J1885; Q9967